=== PATIENT | male | born 1955 | race Caucasian/White ===

== ENCOUNTER 2019-07-04 06:57 | Observation (INO) | payer BC ==
--- NOTE | 2019-06-13 08:52 | HP ---
CC: Dr. Luis Armando Washburn * HISTORY AND PHYSICAL: DATE OF PLANNED ADMISSION/SURGERY: 07/04/19 HISTORY OF PRESENT ILLNESS: Mr. Kim is a 63-year-old white male who is admitted with bladder outlet obstruction, prostate enlargement and obstruction, urethral stricture, for cystoscopy, internal urethrotomy and transurethral resection of the prostate. I have been following Mr. Kim for the last 8 years because of bladder outlet obstruction and history of renal calculus disease. In December 2013, he underwent a cystoscopy and cystolitholapaxy because of bladder calculi. At that time, he was noted also to have uric acid nephrolithiasis, and he has been maintained on potassium citrate with good control of the calculi and no recurrences. For the last 5 years, the patient had been maintained on tamsulosin and on finasteride for his prostate enlargement and bladder outlet obstruction. He continued to be symptomatic with slow stream, day frequency, nocturia and he continued to have an elevated post-void residual of about 150 cc. He denies any episodes of urinary infections. As work-up for the bladder outlet obstruction, he had a cystoscopy which showed soft bulbar urethral stricture, a large obstructing prostate with a prominent median lobe. The bladder wall showed diffuse trabeculations, but there were no diverticula and no suspicious bladder lesions seen. Urodynamic studies showed a high voiding detrusor pressure with slow flow, elevated post void residual, consistent with bladder outlet obstruction and making him a good candidate for transurethral resection of the prostate. PAST MEDICAL HISTORY AND SYSTEM REVIEW: The patient is diabetic and is maintained on metformin and glipizide. He has GERD, on omeprazole. He takes one baby aspirin per day. He denies being allergic to any medications. He is a non-smoker. No history of mental health problems. FAMILY HISTORY: Negative for prostate carcinoma. PHYSICAL EXAMINATION VITAL SIGNS: He is a moderately overweight, otherwise healthy looking white male. Blood pressure 140/80, pulse of 80. LUNGS: Clear. HEART: Regular and rhythmic. No murmurs. ABDOMEN: Soft. No masses. No tenderness. No CVA tenderness. GENITALIA: External genitalia are normal. RECTAL EXAM: Shows an enlarged but nonsuspicious prostate. EXTREMITIES: Show no edema. LABORATORY DATA: The patient's last PSA was in March 2019 and was 1.6 on finasteride. IMPRESSION: 1. Soft urethral stricture. 2. Prostate enlargement and obstruction, symptomatic, failing medical treatment. 3. Past history of bladder calculi. 4. Past history of uric acid nephrolithiasis. 5. Diabetes mellitus, on treatment. PLAN: I had a long discussion with the patient regarding the various options of management of his prostate enlargement and the bladder outlet obstruction. We discussed the transurethral resection of the prostate, UroLift, Rezum, the 2 last procedures I do not perform; however, I could refer him for them if he is interested. The patient wants to proceed with a TURP, which I feel is the right procedure for him considering his long-term history of obstruction, and especially the enlargement of the median lobe of the prostate. We discussed the TURP in detail. Some of the potential complications including infection, gross hematuria, possible recurrence of the urethral strictures, small incidence of urinary incontinence. If the urethral strictures are noted to be a clinically significant, internal urethrotomy will also be performed All his questions were answered. [id number]/CPS #: [id number] NATI
[~2019-07-04 06:57] MED LIST: Buffered Lidocaine 1% SYRIN* 1 ML/SYRINGE INTRADERM ONE; Famotidine IV* 10 MG/ML 2 ML (20 mg) IV ONE; Lactated Ringers 1000 ML Bag* 1,000 ML IV SCH; Metoclopramide IV* 5 MG/ML 2 ML VIAL IV SLOW PU ONE
[2019-07-04] MEDS ORDERED: Famotidine IV* 10 MG/ML 2 ML (20 mg) ONE (07:41)
[2019-07-04] MEDS ORDERED: Metoclopramide IV* 5 MG/ML 2 ML VIAL ONE (07:41)
[2019-07-04] MEDS ORDERED: cefTRIAXone(*) 2 GM ADDV.VIAL IVPB ONE (07:41)
[2019-07-04] MEDS ORDERED: Buffered Lidocaine 1% SYRIN* 1 ML/SYRINGE INTRADERM ONE (07:41)
[2019-07-04] MEDS ORDERED: Lidocaine 2% PF * 5 ML VIAL ONE (08:57)
[2019-07-04] MEDS ORDERED: Midazolam* 1 MG/ML 5 ML VIAL (5 MG) ONE (08:57)
[2019-07-04] MEDS ORDERED: fentaNYL* 50 MCG/ML 5 ML VIAL (250 MCG VIAL) ONE (08:57)
[2019-07-04] MEDS ORDERED: Propofol* 10 MG/ML 20 ML BTL ONE (08:57)
[2019-07-04] MEDS ORDERED: DiMENhydriNATE IV* 50 MG/ML VIAL IV PUSH PRN (09:45)
[2019-07-04] MEDS ORDERED: Naloxone* 0.4 MG/ML 1 ML VIAL IV PRN (09:45)
[2019-07-04] MEDS ORDERED: HYDROcodone/ACETAMIN 5-325 MG* 1 TAB PO PRN (09:45)
[2019-07-04] MEDS ORDERED: oxyCODONE/Acetamin 5/325 MG* TAB PO PRN ×2 (09:45→12:58)
[2019-07-04] MEDS ORDERED: fentaNYL* 50 MCG/ML 2 ML VIAL (100 MCG VIAL) IV PRN (09:45)
[2019-07-04] MEDS ORDERED: Ondansetron INJ* 2 MG/ML VIAL ONE (10:20)
[2019-07-04] MEDS ORDERED: Oxybutynin TAB* 5 MG PO PRN (12:58)
[2019-07-04] MEDS: NS 0.9% 1000 ML** 1,000 ML IV SCH ×2 (14:58→18:57)
[2019-07-04] MEDS: metFORMIN* 1,000 MG TAB PO SCH (21:00)
[2019-07-04] MEDS ORDERED: Insulin GLARGINE(*) 1 UNITS UNIT SUBCUT SCH (21:00)
[2019-07-04] MEDS: Finasteride TAB* 5 MG PO SCH (21:00)
--- NOTE | 2019-07-04 21:25 | OP ---
CC: Dr. Washburn * DATE OF OPERATION: 07/04/19 - ROOM #340 DATE OF : 51 SURGEON: Adan Pritchett MD. ANESTHESIOLOGIST: Dr. Man Gunderson. ANESTHESIA: General. PRE-OP DIAGNOSES: 1. Urethral stricture 2. Benign prostatic hyperplasia. 3. Bladder outlet obstruction due to above. POST-OP DIAGNOSES: 1. Urethral stricture 2. Benign prostatic hyperplasia. 3. Bladder outlet obstruction due to above. OPERATIVE PROCEDURE: 1. Cystoscopy. 2. Urethral dilation. 3. Transurethral resection of the prostate. INDICATIONS: Mr. Kim is a 63-year-old white male who had a long history of bladder outlet obstruction and had been maintained on tamsulosin and finasteride. He continued to be symptomatic with frequency nocturia and an elevated postvoid residual of 150 cc. Cystoscopy in the office showed a partial stricture of the bulbar urethra, a large obstructing prostate with a large median lobe. Urodynamic studies showed high voiding detrusor pressure consistent with bladder outlet obstruction. Because of the above history, the failure of medical treatment and the persistent symptoms and after discussing the various options of management, the patient elected to proceed with TURP. OPERATIVE FINDINGS: At cystoscopy, the penile urethra looked normal. There was a stricture of the proximal bulbar urethra just distal to the level of the external sphincter. The stricture allowed a 22 cystoscope to be passed inside the bladder. The prostatic urethra was measured 3.5 cm in length, there was obstruction by trilobar hyperplasia of the prostate. Examination of the bladder showed normal ureteral orifices. No suspicious bladder lesions seen. No calculi or diverticuli were noted. DESCRIPTION OF PROCEDURE: After successful general anesthesia, the patient was placed in the lithotomy position and was prepped and draped for a cystoscopy. Cystoscopy was performed. The urethra and the bladder were inspected and above findings were noted. The stricture seemed to be amenable to dilation. The urethra was then sequentially dilated with [place] dilators to size 28 Polish. The resectoscope was then introduced under direct vision inside the bladder. Mannitol sorbitol solution was used for irrigation and the inflow and outflow were adjusted to avoid over distention of the bladder. The median lobe was resected first, down to the bladder neck muscles. The protruding portions of the lateral lobes inside the bladder neck were then resected circumferentially. The resectoscope was then positioned in the mid prostatic urethra and the adenoma was resected circumferentially. The resectoscope was then positioned at the level of the veru and the resection of the left lateral lobe was started at 5 o'clock and proceeding anteriorly. The right lobe was resected next. The apical and the anterior tissues were resected last. The prostate was large and moderately vascular. The bleeders were electrocoagulated and controlled as the resection was proceeding. At the completion of the resection, the prostatic urethra was wide open. The external sphincter and the veru were intact. There were no open sinuses and no perforation of the capsule. The trigone, the ureteral orifices and the bladder were all intact. The bladder was then thoroughly irrigated and all the prostate chips were evacuated and sent for pathology. After a final inspection, which showed good hemostasis and no residual prostate chips, the resectoscope was removed and a size 22-Polish Alvarez catheter was passed inside the bladder and the balloon inflated with 40 cc of water. Catheter was placed under gentle traction and taped to the right thigh of the patient. Irrigations yielded clear returns The patient tolerated the procedure well and left the operating room in good condition. The blood loss was estimated at about 50 cc. The specimen was prostate chips. There were no complications. [id number]/[facility] #: [id number] NATI
[2019-07-04] MEDS: POTASSIUM CITRATE PO SCH (21:46)
[2019-07-05] MEDS: NS 0.9% 1000 ML** 1,000 ML IV SCH (01:33)
[2019-07-05] MEDS ORDERED: cefTRIAXone(*) 1 GM in NS 0.9% 50 ML* 50 ML IVPB ONE (06:30)
[2019-07-05] MEDS: POTASSIUM CITRATE PO SCH (08:08)
[2019-07-05] MEDS: metFORMIN* 1,000 MG TAB PO SCH (08:21)
[2019-07-05] MEDS: Finasteride TAB* 5 MG PO SCH (08:22)
[2019-07-05 08:41] VITALS: BP 154/82
[2019-07-05] MEDS ORDERED: Atorvastatin* 10 MG TAB PO SCH (09:00)
[2019-07-05] MEDS ORDERED: Multivitamins/Minerals TAB PO SCH (09:00)
[2019-07-05] MEDS ORDERED: Pantoprazole TAB * 40 MG TAB PO SCH (09:00)
[2019-07-05] MEDS ORDERED: glipiZIDE TAB* 5 MG PO SCH (09:00)
--- NOTE | 2019-07-05 10:34 | DS ---
CC: Dr. Luis Armando Washburn * DISCHARGE SUMMARY: DATE OF ADMISSION: 07/04/19 DATE OF DISCHARGE: 07/05/19 FINAL DIAGNOSES: 1. Benign prostatic hyperplasia. 2. Urethral stricture. 3. Bladder outlet obstruction due to above. 4. Diabetes mellitus. OPERATION: 1. Cystoscopy. 2. Urethral dilation. 3. Transurethral resection of the prostate on 07/04/19. HISTORY OF PRESENT ILLNESS: Mr. Kim is a 63-year-old white male who had long history of bladder outlet obstruction secondary to prostate enlargement. He had been maintained on tamsulosin and finasteride. He continued to be symptomatic with slow stream, hesitancy, and incomplete bladder emptying. Workup with cystoscopy showed a large obstructing prostate. Urodynamic studies showed high voiding detrusor pressure consistent with good bladder muscle function and indicating the prostate enlargement as the cause of his symptoms. PAST MEDICAL HISTORY AND SYSTEM REVIEW: He is diabetic, maintained on metformin and glipizide. He has history of GERD, on omeprazole. He has history of renal calculus disease. A preoperative lab work was within normal. A preoperative physical examination was within normal. His PSA has been normal and stable for his age. COURSE IN HOSPITAL: The patient was admitted the morning of his surgery. He underwent an uncomplicated cystoscopy, urethral dilation of a bulbar urethral stricture, and transurethral resection of the prostate under general anesthesia. He did very well postoperatively. He was kept overnight for observation and he did very well. He was discharged home in good condition the next morning on Alvarez catheter drainage and with a clear urine and normal vital signs. Instructions were given for followup care. The patient can discontinue the Flomax, but will continue on reduced dose of finasteride. He is to stay on all his other medications with the exception of aspirin that he should skip for the next 3 weeks. Pathology on the resected prostate tissue showed a volume of 30 cc, and was benign. He will be seen in the office 1 week postoperatively and the Alvarez catheter will be removed. [id number]/[facility]PS #: [id number] [facility]
== END 2019-07-05 10:42 | disposition home or self-care (01) ==
LOC: OR 06:57 → SSU 12:24
PROVIDERS: ADMIT Urology; ATTEND Urology
PROC: 0TJB8ZZ Inspection of Bladder, Via Natural or Artificial Opening Endoscopic (ICD-10-PCS; 2019-07-04)
PROC: 0T7D0ZZ Dilation of Urethra, Open Approach (ICD-10-PCS; 2019-07-04)
PROC: 0VT08ZZ Resection of Prostate, Via Natural or Artificial Opening Endoscopic (ICD-10-PCS; principal; 2019-07-04 08:45)
DX: N35.919 Unspecified urethral stricture, male, unspecified site (principal); N40.1 Benign prostatic hyperplasia with lower urinary tract symptoms; N13.8 Other obstructive and reflux uropathy; E11.9 Type 2 diabetes mellitus without complications; Z79.82 Long term (current) use of aspirin; Z87.442 Personal history of urinary calculi; Z79.4 Long term (current) use of insulin
CPT/HCPCS: 88305; 96361; 96365; A9270-GY; G0378; J0696; J2250; J2405; J2704; J2765; J3010